=== PATIENT | female | born 1970 | race Caucasian/White ===

== ENCOUNTER 2020-04-08 08:55 | Emergency (ER) | payer OTHER, SELFPAY ==
[~2020-04-08] VITALS: Ht 149.9 cm; Wt 77.1 kg
[2020-04-08 09:05] VITALS: BP 126/79
--- NOTE | 2020-04-08 09:16 | NUR ---
COVID 19 HOSPITAL PROTOCOL FOLLOWED PT WITH MASK BEFORE ENTERING ER PT PLACED IN COVID ISOLATION ROOM COVID SIGN / SIGN IN SHEET AT BEDSIDE RN FULL PPE
--- NOTE | 2020-04-08 09:16 | NUR ---
49 Y/O F C/C SORE THROAT/COUGH X 1 DAY. PER PT TAKEN OTC RX WITH SLIGHT RELIEF. PT EXPOSED TO POSITIVE COVID CASE X 2 WEEKS AGO, CURRENT PROFESSION RN IN OR. NO RESPIRATORY DISTRESS NOTED, CLEAR SPEECH, EUPNIC. ALLERGIES TO SULFA. HX DM. RX METFORMIN,ZOLOFT. LS CLEAR. NO NVD.
--- NOTE | 2020-04-08 09:42 | NUR ---
Dr. Rivera is evaluating the patient at bedside.
--- NOTE | 2020-04-08 10:10 | NUR ---
COVID SWAB DONE , TAKEN TO LAB
[2020-04-08 10:36] VITALS: BP 126/79
--- NOTE | 2020-04-08 10:36 | NUR ---
Patient discharged with v/s stable. Written and verbal after care instructions given and explained. Patient alert, oriented and verbalized understanding of instructions. Ambulatory with steady gait. All questions addressed prior to discharge. ID band removed. Patient advised to follow up with PMD. Rx of MOTRIN,PREDNISONE,CORTISPORIN given. Patient educated on indication of medication including possible reaction and side effects. Opportunity to ask questions provided and answered.
== END 2020-04-08 10:36 | disposition home or self-care (01) ==
LOC: EEVIPCON 08:55 → MED 08:55
DX: J02.9 Acute pharyngitis, unspecified (principal); Z20.828 Contact with and (suspected) exposure to other viral communicable diseases; R05 Cough; H60.91 Unspecified otitis externa, right ear; E11.9 Type 2 diabetes mellitus without complications; Z98.890 Other specified postprocedural states; Z88.2 Allergy status to sulfonamides
CPT/HCPCS: 99283; C9803; U0003; 36415

== ENCOUNTER 2020-08-17 12:13 | Outpatient (CLI) | payer OTHER ==
[2020-08-17 13:58] LABS: BASOPHILS # (AUTO) 0.1 K/uL (0.00-0.22); BASOPHILS % (AUTO) 0.7 % (0.0-2.0); EOSINOPHILS # (AUTO) 0.3 K/uL (0-0.4); EOSINOPHILS % (AUTO) 3.1 % (0.0-4.0); HEMATOCRIT 45.5 % (36-48); HEMOGLOBIN 15.9 g/dL (12.0-16.0); LYMPHOCYTES # (AUTO) 3.3 K/uL (2.5-16.5); LYMPHOCYTES % (AUTO) 37.4 % (20.5-51.1); MEAN CORPUSCULAR HEMOGLOBIN 31 pg (27-31); MEAN CORPUSCULAR HGB CONC 35 g/dL (33-37); MEAN CORPUSCULAR VOLUME 88.8 fL (80-94); MONOCYTES # (AUTO) 0.5 K/uL (0.8-1.0); MONOCYTES % (AUTO) 5.7 % (1.7-9.3); NEUTROPHILS # (AUTO) 4.7 K/uL (1.8-7.7); NEUTROPHILS % (AUTO) 53.1 % (42.2-75.2); PLATELET COUNT (AUTO) 409 K/uL (140-450); RED BLOOD CELL COUNT(AUTO) 5.12 MIL/uL (4.20-5.40); RED CELL DISTRIBUTION WIDTH 12.3 % (11.6-13.7); WHITE BLOOD COUNT (AUTO) 8.8 K/uL (4.8-10.8)
[2020-08-17 14:40] LABS: ALBUMIN 4.3 g/dL (3.4-5.0); ANION GAP 12.3 (8-16); CARBON DIOXIDE 27.7 mmol/L (21-32); CREATININE 1.2 mg/dL (0.6-1.3); THYROID STIMULATING HORMONE 2.58 uIU/mL (0.34-3.74); TOTAL BILIRUBIN 0.8 mg/dL (0.0-1.0)
[2020-08-18 09:06] LABS: ESTRADIOL SERUM 9.1 pg/mL (.); FOLLICLE STIMULATING HORMONE 69.8 mIU/mL (.); T4 (THYROXINE) 6.7 ug/dL (4.5-12.0); THYROID PEROXIDASE (TPO) AB <9 IU/mL (0-34); TRIIODOTHYRONINE 111 ng/dL (71-180)
== END 2020-08-17 21:02 | disposition home or self-care (01) ==
LOC: MLB 12:13
PROVIDERS: ATTEND Obstetrics & Gynecology
DX: N95.1 Menopausal and female climacteric states (principal)
CPT/HCPCS: 36415; 80053; 82306; 82607; 82670; 83001; 84403; 84436; 84443; 84480; 85025; 86376

== ENCOUNTER 2020-09-20 12:11 | Emergency (ER) | payer OTHER ==
[~2020-09-20] VITALS: Ht 149.9 cm; Wt 81.6 kg
[2020-09-20 12:14] VITALS: BP 130/86
--- NOTE | 2020-09-20 12:20 | NUR ---
PT C/O RIGHT LATERAL ANKLE PAIN WITH THROBBING SENSATION W/ 3/10 INTENSITY, LEFT KNEE ABRASION S/P MECHANICAL FALL AT [facility] X APPROX 1130AM TODAY. PT DENIES DIZZINESS OR LIGHTHEADED. SLIGHT EDEMA W/O ERYTHEMA OR DEFORMITY NOTICED ON PT'S RIGHT ANKLE. FULL ROM ON RIGHT ANKLE. PT HAS HX OF DM BUT REFUSED FOR ACCU CHECK.
--- NOTE | 2020-09-20 12:25 | NUR ---
Patient to bed 11. RN evaluating patient at bedside.
[2020-09-20 13:41] VITALS: BP 125/81
--- NOTE | 2020-09-20 13:41 | NUR ---
Patient discharged with v/s stable. Written and verbal after care instructions given and explained. Patient verbalized understanding. Ambulatory with steady gait. All questions addressed prior to discharge. Advised to follow up with PMD.
== END 2020-09-20 13:41 | disposition home or self-care (01) ==
LOC: MED 12:11
DX: S93.401A Sprain of unspecified ligament of right ankle, initial encounter (principal); E11.9 Type 2 diabetes mellitus without complications; Z88.2 Allergy status to sulfonamides; X58.XXXA Exposure to other specified factors, initial encounter; Y93.89 Activity, other specified; Y92.89 Other specified places as the place of occurrence of the external cause; Y99.8 Other external cause status
CPT/HCPCS: 73610; 99283; Q0092

== ENCOUNTER 2020-10-01 13:42 | Outpatient (CLI) | payer OTHER ==
[2020-10-02 08:08] LABS: ESTRADIOL SERUM 57.9 pg/mL (.); FOLLICLE STIMULATING HORMONE 7.6 mIU/mL (.); TRIIODOTHYRONINE FREE 2.7 pg/mL (2.0-4.4)
== END 2020-10-01 19:52 | disposition home or self-care (01) ==
LOC: MLB 13:42
PROVIDERS: ATTEND Obstetrics & Gynecology
DX: N95.1 Menopausal and female climacteric states (principal); E03.9 Hypothyroidism, unspecified
CPT/HCPCS: 36415; 82670; 83001; 84403; 84436; 84443; 84481; 86376

== ENCOUNTER 2020-12-09 09:14 | Outpatient (CLI) | payer OTHER ==
[2020-12-09 10:25] LABS: BASOPHILS # (AUTO) 0.1 K/uL (0.00-0.22); BASOPHILS % (AUTO) 0.8 % (0.0-2.0); EOSINOPHILS # (AUTO) 0.2 K/uL (0-0.4); EOSINOPHILS % (AUTO) 2.5 % (0.0-4.0); HEMATOCRIT 45.4 % (36-48); HEMOGLOBIN 15.9 g/dL (12.0-16.0); LYMPHOCYTES # (AUTO) 1.9 K/uL (2.5-16.5); LYMPHOCYTES % (AUTO) 25.2 % (20.5-51.1); MEAN CORPUSCULAR HEMOGLOBIN 32 pg (27-31); MEAN CORPUSCULAR HGB CONC 35 g/dL (33-37); MONOCYTES # (AUTO) 0.6 K/uL (0.8-1.0); MONOCYTES % (AUTO) 7.9 % (1.7-9.3); NEUTROPHILS # (AUTO) 4.8 K/uL (1.8-7.7); NEUTROPHILS % (AUTO) 63.6 % (42.2-75.2); PLATELET COUNT (AUTO) 366 K/uL (140-450); RED BLOOD CELL COUNT(AUTO) 5.05 MIL/uL (4.20-5.40); RED CELL DISTRIBUTION WIDTH 12.9 % (11.6-13.7); WHITE BLOOD COUNT (AUTO) 7.6 K/uL (4.8-10.8)
[2020-12-09 10:27] LABS: ANION GAP 20.1 (8-16); CARBON DIOXIDE 18.7 mmol/L (21-32); CHOL/HDL RATIO 6.8 (1-4.5); CREATININE 0.6 mg/dL (0.6-1.3); FREE T4 (FREE THYROXINE) 0.94 ng/dL (0.76-1.46); POTASSIUM 3.8 mmol/L (3.5-5.1); THYROID STIMULATING HORMONE 1.25 uIU/mL (0.34-3.74); TOTAL BILIRUBIN 0.7 mg/dL (0.0-1.0)
[2020-12-09 11:03] LABS: ALBUMIN 4.5 g/dL (3.4-5.0)
[2020-12-09 12:18] LABS: APPEARANCE,URINE CLEAR (CLEAR); BILIRUBIN,URINE 1+ (NEGATIVE); BLOOD, URINE 1+ (NEGATIVE); COLOR,URINE YELLOW (YELLOW); LEUKOCYTE ESTERASE ,URINE NEGATIVE (NEGATIVE); NITRITE, URINE NEGATIVE (NEGATIVE); PH,URINE 5.5 (5.0-9.0); UGLUCOSE 3+ (NEGATIVE)
[2020-12-09 12:27] LABS: RBC,URINE 0-5 /HPF (0-5)
[2020-12-09 12:28] LABS: WBC,URINE 0-5 /HPF (0-5)
[2020-12-11 10:06] LABS: MICROALBUMIN, UR RANDOM 112.7 ug/mL (Not Estab.)
== END 2020-12-09 20:06 | disposition home or self-care (01) ==
LOC: MLB 09:14
DX: Z00.01 Encounter for general adult medical examination with abnormal findings (principal); J30.9 Allergic rhinitis, unspecified; E11.65 Type 2 diabetes mellitus with hyperglycemia; E03.9 Hypothyroidism, unspecified; E55.9 Vitamin D deficiency, unspecified; I10 Essential (primary) hypertension; E78.5 Hyperlipidemia, unspecified
CPT/HCPCS: 36415; 80053; 81001; 82043; 82306; 83036; 84439; 84443; 85025

== ENCOUNTER 2021-01-25 09:21 | Outpatient (CLI) | payer OTHER ==
[2021-01-25 10:23] LABS: ALBUMIN 4.2 g/dL (3.4-5.0); ANION GAP 13.7 (8-16); CARBON DIOXIDE 26.3 mmol/L (21-32); CREATININE 0.5 mg/dL (0.6-1.3); THYROID STIMULATING HORMONE 0.64 uIU/mL (0.34-3.74); TOTAL BILIRUBIN 0.5 mg/dL (0.0-1.0)
[2021-01-25 10:35] LABS: BASOPHILS # (AUTO) 0.1 K/uL (0.00-0.22); BASOPHILS % (AUTO) 0.9 % (0.0-2.0); EOSINOPHILS # (AUTO) 0.3 K/uL (0-0.4); HEMATOCRIT 44.2 % (36-48); HEMOGLOBIN 15.5 g/dL (12.0-16.0); LYMPHOCYTES # (AUTO) 2.2 K/uL (2.5-16.5); LYMPHOCYTES % (AUTO) 32.5 % (20.5-51.1); MEAN CORPUSCULAR HEMOGLOBIN 32 pg (27-31); MEAN CORPUSCULAR HGB CONC 35 g/dL (33-37); MEAN CORPUSCULAR VOLUME 90.7 fL (80-94); MONOCYTES # (AUTO) 0.4 K/uL (0.8-1.0); MONOCYTES % (AUTO) 5.6 % (1.7-9.3); NEUTROPHILS # (AUTO) 3.8 K/uL (1.8-7.7); PLATELET COUNT (AUTO) 392 K/uL (140-450); RED BLOOD CELL COUNT(AUTO) 4.87 MIL/uL (4.20-5.40); RED CELL DISTRIBUTION WIDTH 12.4 % (11.6-13.7); WHITE BLOOD COUNT (AUTO) 6.8 K/uL (4.8-10.8)
[2021-01-26 09:06] LABS: ESTRADIOL SERUM 70.7 pg/mL (.); FOLLICLE STIMULATING HORMONE 9.9 mIU/mL (.); T4 (THYROXINE) 5.6 ug/dL (4.5-12.0); THYROID PEROXIDASE (TPO) AB <9 IU/mL (0-34)
== END 2021-01-25 20:07 | disposition home or self-care (01) ==
LOC: MLB 09:21
PROVIDERS: ATTEND Obstetrics & Gynecology
DX: E55.9 Vitamin D deficiency, unspecified (principal); E53.8 Deficiency of other specified B group vitamins; R53.83 Other fatigue; N95.1 Menopausal and female climacteric states
CPT/HCPCS: 36415; 80053; 82306; 82607; 82670; 82746; 83001; 84402; 84403; 84436; 84443; 84481; 85025; 86376